=== PATIENT | female | born 1965 | race American Indian/Alaskan Native ===

== ENCOUNTER 2018-10-10 12:06 | Emergency (ER) | payer OTHER ==
[2018-10-10 12:06] VITALS: BMI 28.1
--- NOTE | 2018-10-10 14:39 | C.PDOC ---
History Of Present Illness 53 year old female presents to the ED for evaluation of right lower leg pain which began [employer]. Patient states she was walking on the street, when her right foot fell into a whole while she was getting off the curb, causing her to twist her right foot. Patient went home and iced the area, without relief. She states her pain is 8/10 in severity. Denies head injury, LOC, extremity numbness/weakness. Chief Complaint (Nursing): Lower Extremity Problem/Injury History Per: Patient History/Exam Limitations: no limitations Onset/Duration Of Symptoms: Hrs Current Symptoms Are (Timing): Still Present Additional History Per: Patient - Ankle/Foot Description Of Injury: Twisted Past Medical History Reviewed: Historical Data, Nursing Documentation, Vital Signs Vital Signs: Last Vital Signs Temp 98 F 10/10/18 12:33 Pulse 81 10/10/18 12:33 Resp 18 10/10/18 12:33 BP 129/77 10/10/18 12:33 Pulse Ox 96 10/10/18 12:33 - Medical History PMH: Arthritis, Asthma, HTN, Hypercholesterolemia, Sleep Apnea Denies: Depression, Chronic Kidney Disease Surgical History: Back Surgery - [facility] Procedures DRESSING OF WOUND NEC (03/03/15) ESOPHAGOGASTRODUODENOSCOPY [EGD] W/CLOSED BIOPSY (04/23/14) FUSION/REFUS OF 2-3 VERTEBRAE (05/09/14) INJECT/INFUSE NEC (11/09/13) LUMBAR & LUMBOSACRAL FUSION OF POSTERIOR COL/TECHNIQUE (05/09/14) OTHER SKIN & SUBQ I D (03/01/15) PHYSICAL THERAPY NEC (11/30/14) Family History: States: Unknown Family Hx - Social History Hx Tobacco Use: Yes Hx Alcohol Use: No Hx Substance Use: No - Immunization History Hx Tetanus Toxoid Vaccination: No Hx Influenza Vaccination: No Hx Pneumococcal Vaccination: No Review Of Systems Musculoskeletal: Positive for: Leg Pain (right, lower ) Neurological: Negative for: Weakness, Numbness, Other (head injury, LOC ) Physical Exam - Physical Exam Appears: Non-toxic, No Acute Distress Skin: Normal Color, Warm, Dry Head: Atraumatic, Normacephalic Extremity: Tenderness (to medial aspect of right lower extremity on palpation ), No Pedal Edema, No Calf Tenderness, Capillary Refill (less than 2 seconds ), No Swelling, No Other (abrasion, edema or ecchymosis to right lower extremity ) Extremity: Right: Painful To Bear Weight (leg), Bilateral: Normal Color And Temperature, Normal ROM Pulses: Left Dorsalis Pedis: Normal, Right Dorsalis Pedis: Normal Neurological/Psych: Oriented x3, Normal Speech, Normal Cognition, Normal Sensation ED Course And Treatment O2 Sat by Pulse Oximetry: 96 (on RA ) Pulse Ox Interpretation: Normal Medical Decision Making Medical Decision Making: Progress: Right lower leg XR ordered and reviewed.- beg for dislocations and fractures Motrin PO given. slight improvement patient is stable for discharge will follow up with ortho if pain persists Disposition Counseled Patient/Family Regarding: Studies Performed, Diagnosis, Need For Followup, Rx Given - Disposition Referrals: Jim Prather III, MD [Staff Provider] - Disposition: HOME/ ROUTINE Disposition Time: 16:39 Condition: STABLE Additional Instructions: Start Naproxen twice a day Rest, Ice, Elevation, and Compression Follow up with Ortho in 1-2 days Return to ED if symptoms worsen Prescriptions: Naproxen [Naprosyn] 500 mg PO BID #30 tablet Instructions: Muscle and Bone Pain (DC) Forms: [employer] (Bengali), Work Excuse - Clinical Impression Clinical Impression: Leg pain, right, Contusion of leg, right - PA / SEAM [employer] / Resident Statement MD/DO has reviewed & agrees with the documentation as recorded. - Scribe Statement The provider has reviewed the documentation as recorded by the Scribe (Emma De Oliveira) All medical record entries made by the Scribe were at my direction and personally dictated by me. I have reviewed the chart and agree that the record accurately reflects my personal performance of the history, physical exam, medical decision making, and the department course for this patient. I have also personally directed, reviewed, and agree with the discharge instructions and disposition.
[2018-10-10 16:39] VITALS: BP 154/81; PULSE 80; RESP 16; TEMP 98.6
[2018-10-10 16:42] VITALS: O2SAT 96
--- NOTE | 2018-10-10 16:45 | RAD ---
Date of service: 10/10/2018 PROCEDURE: Radiographs of the right tibia and fibula. HISTORY: s/p fall COMPARISON: None available TECHNIQUE: Frontal and lateral views obtained. 2 views obtained. FINDINGS: BONES: Bone alignment and mineralization are normal. There is no acute displaced fracture or bone destruction. JOINT SPACES: Unremarkable. OTHER FINDINGS: None. IMPRESSION: No acute fracture or dislocation.
== END 2018-10-10 17:11 | disposition home or self-care (01) ==
LOC: C.ER 12:06
DX: S80.11XA Contusion of right lower leg, initial encounter (principal); W17.2XXA Fall into hole, initial encounter; Y93.01 Activity, walking, marching and hiking; Y92.410 Unspecified street and highway as the place of occurrence of the external cause; E78.00 Pure hypercholesterolemia, unspecified; I10 Essential (primary) hypertension; Z72.0 Tobacco use